=== PATIENT | male | born 1940 | race Caucasian/White ===

== ENCOUNTER 2022-07-29 16:50 | Inpatient (IN) | payer MEDICARE, OTHER ==
[~2022-07-29] VITALS: Ht 182.9 cm; Wt 82.5 kg
[~2022-07-29 16:50] MED LIST: ASPI81CH43; LISI-716
[2022-07-29 18:19] LABS: Eosinophils # (auto) 0.1 10 ^3/uL (0-0.8); Nucleated Red Blood Cells % 0.1 %; White Blood Cell 14.2 10^3/uL (4.4-10.8)
[2022-07-29 18:21] LABS: Basophils # (auto) 0.2 10 ^3/uL (0-0.2); Basophils % (auto) 1.1 % (0.0-2.0); Eosinophils % (auto) 0.5 % (0.0-7.0); Hematocrit 44.6 % (41.0-53.0); Hemoglobin 14.6 g/dL (13.5-17.5); Lymphocytes # (auto) 0.6 10 ^3/uL (0.4-5.4); Lymphocytes % (auto) 4.2 % (10.0-50.0); Mean Corpuscular Hemoglobin 30.8 pg (28.0-32.0); Mean Corpuscular Hgb Conc. 32.7 g/dL (32.0-36.0); Mean Corpuscular Volume 94.3 fL (80.0-100.0); Monocytes # (auto) 0.9 10 ^3/uL (0-1.3); Monocytes % (auto) 6.3 % (0.0-12.0); Neutrophils # (auto) 12.5 10 ^3/uL (1.6-8.6); Neutrophils % (auto) 87.9 % (37.0-80.0); Red Blood Cells 4.73 10^6/uL (4.5-5.90); Red Cell Distribution Width 15.3 % (11.8-14.3)
[2022-07-29 18:39] LABS: Alanine Aminotransferase 28 U/L (16-61); Albumin 2.8 g/dL (3.4-5.0); Anion Gap 9 (5-15); Aspartate Aminotransferase 50 U/L (15-37); BUN/Creatinine Ratio 21.3; Blood Urea Nitrogen 45 mg/dL (7-18); Calcium 8.5 mg/dL (8.5-10.1); Carbon Dioxide 22 mmol/L (21-32); Chloride 120 mmol/L (98-107); GFR African American 39 mL/min; GFR Non-African American 32 mL/min; Glucose 124 mg/dL (74-106); Magnesium 2.3 mg/dL (1.6-2.6); Potassium 4.6 mmol/L (3.5-5.1); Sodium 151 mmol/L (136-145)
[2022-07-29 18:42] LABS: Alkaline Phosphatase 65 U/L (45-117); Bilirubin, Total 1.8 mg/dL (0.2-1.0); Lactic Acid w/Reflex 3.2 mmol/L (0.4-2.0); Total Protein 6.4 g/dL (6.4-8.2)
[2022-07-29 18:43] LABS: Blood Alcohol < 3.0 mg/dL (0-5)
[2022-07-29 18:58] LABS: INR 1.07 (0.9-1.15); Partial Thromboplastin Time 30.8 sec (24.6-33.4)
[2022-07-29] MEDS ORDERED: PIPERACILLIN-TAZOB 3.375GM 100 ML IV ONE (19:45)
[2022-07-29] MEDS ORDERED: DOCUSATE SOD 100 MG CAP PO PRN (21:00)
[2022-07-29] MEDS ORDERED: MORPHINE SULFATE INJ 2 MG/ml SYRG IV PRN (21:00)
[2022-07-29] MEDS ORDERED: HYDROcodone-ACET 5/325MG TAB PO PRN (21:00)
[2022-07-29] MEDS ORDERED: HEPARIN DRIP/D5W 100UNITS/ML 250 ML IV SCH (21:00)
[2022-07-29] MEDS ORDERED: SOD CHL 0.45% 1,000 ML IV ONE (21:00)
[2022-07-29] MEDS ORDERED: NITROGLYCERIN 0.4 MG SL TAB SL PRN (21:00)
[2022-07-29] MEDS ORDERED: ACETAMINOPHEN 325 MG TAB PO PRN (21:00)
[2022-07-29] MEDS ORDERED: ONDANSETRON HCL 4 MG/2 ML VIAL IV PRN (21:00)
[2022-07-29 21:10] LABS: Basophils # (auto) 0.1 10 ^3/uL (0-0.2); Basophils % (auto) 0.5 % (0.0-2.0); Eosinophils # (auto) 0.1 10 ^3/uL (0-0.8); Eosinophils % (auto) 0.5 % (0.0-7.0); Lymphocytes # (auto) 0.5 10 ^3/uL (0.4-5.4); Nucleated Red Blood Cells % 0.1 %; White Blood Cell 13.8 10^3/uL (4.4-10.8)
[2022-07-29 21:12] LABS: Hematocrit 43.6 % (41.0-53.0); Hemoglobin 13.9 g/dL (13.5-17.5); Lymphocytes % (auto) 3.5 % (10.0-50.0); Mean Corpuscular Hemoglobin 30.5 pg (28.0-32.0); Mean Corpuscular Hgb Conc. 31.7 g/dL (32.0-36.0); Mean Corpuscular Volume 96.1 fL (80.0-100.0); Monocytes # (auto) 1.1 10 ^3/uL (0-1.3); Neutrophils # (auto) 12.1 10 ^3/uL (1.6-8.6); Neutrophils % (auto) 87.5 % (37.0-80.0); Red Blood Cells 4.54 10^6/uL (4.5-5.90); Red Cell Distribution Width 15.3 % (11.8-14.3)
[2022-07-29 21:32] LABS: Bilirubin, Direct 0.7 mg/dL (0-0.2)
[2022-07-29 21:34] LABS: Bilirubin, Total 1.6 mg/dL (0.2-1.0)
[2022-07-29 21:38] LABS: INR 1.11 (0.9-1.15); Partial Thromboplastin Time 31.3 sec (24.6-33.4)
[2022-07-29] MEDS: SODIUM CHLOR 0.9% PF (SALINE LOCK) 10ML VIAL/SYR IV SCH (22:00)
[2022-07-30] MEDS: SODIUM CHLOR 0.9% PF (SALINE LOCK) 10ML VIAL/SYR IV SCH ×3 (05:32→22:25)
[2022-07-30 09:27] LABS: Urine Bacteria NONE SEEN /hpf (None Seen); Urine Blood Negative /uL (Negative); Urine Specific Gravity 1.019 (1.001-1.035); Urine WBC 1 /hpf (0 - 3)
[2022-07-30 09:37] LABS: Alcohol, Urine < 3.0 mg/dL (0-10); Amphetamine Screen, Urine NEGATIVE (NEGATIVE); Barbiturate Scree,Urine NEGATIVE (NEGATIVE); Benzodiazephine Screen, Urine NEGATIVE (NEGATIVE); Cannabinoid Screen, Urine NEGATIVE (NEGATIVE); Cocaine Screen, Urine NEGATIVE (NEGATIVE); Opiate Scree,Urine NEGATIVE (NEGATIVE); Phencyclidine Screen, Urine NEGATIVE (NEGATIVE)
[2022-07-30 09:38] LABS: Creatinine, Urine 103 mg/dL (30.0-125.0); Sodium Urine 42 mmol/L (40-220)
[2022-07-30] MEDS ORDERED: AZITHROMYCIN 500MG/ 250ML 250 ML IV SCH (10:00)
[2022-07-30] MEDS ORDERED: cefTRIAXone 1GM/50ML D5W 50 ML IV SCH (10:00)
[2022-07-30 12:31] LABS: BUN/Creatinine Ratio 21.3; Calcium 8.6 mg/dL (8.5-10.1); Potassium 4.2 mmol/L (3.5-5.1)
[2022-07-30] MEDS ORDERED: VANCOMYCIN PER PHARMACY 0 MG IV SCH (16:00)
[2022-07-30] MEDS ORDERED: VANCOMYCIN 1GM/250ML 250 ML IV ONE (16:15)
[2022-07-30 22:36] VITALS: BP 109/67
[2022-07-30 23:45] VITALS: BP 109/67
[2022-07-31 05:00] VITALS: BP 123/65
[2022-07-31] MEDS: SODIUM CHLOR 0.9% PF (SALINE LOCK) 10ML VIAL/SYR IV SCH (05:33)
[2022-07-31 08:06] LABS: Albumin 2.5 g/dL (3.4-5.0); Calcium 8.2 mg/dL (8.5-10.1); Potassium 4.2 mmol/L (3.5-5.1)
[2022-07-31 08:10] LABS: BUN/Creatinine Ratio 21.2; Bilirubin, Direct 0.6 mg/dL (0-0.2); Bilirubin, Total 1.4 mg/dL (0.2-1.0); Phosphorus 3.2 mg/dL (2.5-4.90); Total Protein 5.7 g/dL (6.4-8.2); Uric Acid 9.8 mg/dL (3.5-7.2)
[2022-07-31 09:00] VITALS: BP 97/54
[2022-07-31 10:33] LABS: Basophils % (auto) 0.4 % (0.0-2.0); Eosinophils # (auto) 0 10 ^3/uL (0-0.8); Eosinophils % (auto) 0.4 % (0.0-7.0); Hemoglobin 12.3 g/dL (13.5-17.5); Lymphocytes # (auto) 0.4 10 ^3/uL (0.4-5.4); Lymphocytes % (auto) 3.4 % (10.0-50.0); Mean Corpuscular Hgb Conc. 32.2 g/dL (32.0-36.0); Monocytes # (auto) 0.9 10 ^3/uL (0-1.3); Monocytes % (auto) 7.7 % (0.0-12.0); Neutrophils % (auto) 88.1 % (37.0-80.0)
[2022-07-31 10:36] LABS: Basophils # (auto) 0 10 ^3/uL (0-0.2); Hematocrit 38.2 % (41.0-53.0); Mean Corpuscular Hemoglobin 30.5 pg (28.0-32.0); Mean Corpuscular Volume 94.9 fL (80.0-100.0); Neutrophils # (auto) 10.6 10 ^3/uL (1.6-8.6); Red Blood Cells 4.02 10^6/uL (4.5-5.90); Red Cell Distribution Width 15.4 % (11.8-14.3)
[2022-07-31] MEDS ORDERED: D5W 5% 1,000 ML IV SCH ×2 (11:00→12:45)
[2022-07-31] MEDS ORDERED: LACTATED RINGER'S 1,000 ML IV ONE (12:45)
[2022-07-31] MEDS ORDERED: DOXYCYCLINE 100MG/250ML 250 ML IV SCH (13:00)
[2022-07-31] MEDS ORDERED: VANCOMYCIN 1GM/250ML 250 ML IV ONE (13:30)
[2022-07-31 17:16] VITALS: BP 115/68
[2022-07-31 22:00] VITALS: BP 113/77
[2022-07-31] MEDS ORDERED: DOXYCYCLINE 100 MG TAB/CAP PO SCH (22:00)
[2022-08-01] MEDS: CEFEPIME 1GM/ 50ML 50 ML IV SCH ×3 (01:08→21:05)
[2022-08-01] MEDS: SODIUM CHLOR 0.9% PF (SALINE LOCK) 10ML VIAL/SYR IV SCH ×4 (01:08→21:06)
[2022-08-01] MEDS: D5W 5% 1,000 ML IV SCH ×2 (02:20→19:14)
[2022-08-01 05:00] VITALS: BP 97/67
[2022-08-01 07:51] LABS: Calcium 8.6 mg/dL (8.5-10.1); Potassium 3.9 mmol/L (3.5-5.1)
[2022-08-01 07:52] LABS: Basophils # (auto) 0.1 10 ^3/uL (0-0.2); Eosinophils # (auto) 0.1 10 ^3/uL (0-0.8); Hemoglobin 12.1 g/dL (13.5-17.5); Lymphocytes # (auto) 0.5 10 ^3/uL (0.4-5.4); Mean Corpuscular Volume 94.2 fL (80.0-100.0); Monocytes # (auto) 0.9 10 ^3/uL (0-1.3)
[2022-08-01 07:53] LABS: BUN/Creatinine Ratio 21.7
[2022-08-01 07:54] LABS: Basophils % (auto) 0.5 % (0.0-2.0); Eosinophils % (auto) 1.1 % (0.0-7.0); Hematocrit 36.2 % (41.0-53.0); Lymphocytes % (auto) 4.6 % (10.0-50.0); Mean Corpuscular Hemoglobin 31.5 pg (28.0-32.0); Mean Corpuscular Hgb Conc. 33.4 g/dL (32.0-36.0); Monocytes % (auto) 8.5 % (0.0-12.0); Neutrophils # (auto) 9.1 10 ^3/uL (1.6-8.6); Neutrophils % (auto) 85.3 % (37.0-80.0); Nucleated Red Blood Cells % 0.1 %; Red Blood Cells 3.84 10^6/uL (4.5-5.90); Red Cell Distribution Width 15.1 % (11.8-14.3); White Blood Cell 10.7 10^3/uL (4.4-10.8)
[2022-08-01 08:36] VITALS: BP 95/65
[2022-08-01 10:24] LABS: Thyroid Stimulating Hormone 2.19 uIU/mL (0.358-3.74)
[2022-08-01 13:06] VITALS: BP 120/73
[2022-08-01 16:43] LABS: Basophils # (auto) 0.1 10 ^3/uL (0-0.2); Eosinophils # (auto) 0.1 10 ^3/uL (0-0.8); Hemoglobin 12.9 g/dL (13.5-17.5); Lymphocytes # (auto) 0.5 10 ^3/uL (0.4-5.4); Mean Corpuscular Hemoglobin 31.5 pg (28.0-32.0); Monocytes # (auto) 0.9 10 ^3/uL (0-1.3)
[2022-08-01 16:46] LABS: Basophils % (auto) 0.5 % (0.0-2.0); Eosinophils % (auto) 1.3 % (0.0-7.0); Hematocrit 39.1 % (41.0-53.0); Lymphocytes % (auto) 4.6 % (10.0-50.0); Mean Corpuscular Hgb Conc. 32.9 g/dL (32.0-36.0); Mean Corpuscular Volume 95.7 fL (80.0-100.0); Monocytes % (auto) 8.1 % (0.0-12.0); Neutrophils # (auto) 9.1 10 ^3/uL (1.6-8.6); Neutrophils % (auto) 85.5 % (37.0-80.0); Nucleated Red Blood Cells % 0.1 %; Red Blood Cells 4.09 10^6/uL (4.5-5.90); Red Cell Distribution Width 15.5 % (11.8-14.3); White Blood Cell 10.6 10^3/uL (4.4-10.8)
[2022-08-01 16:57] VITALS: BP 96/75
[2022-08-01] MEDS: VANCOMYCIN 1GM/250ML 250 ML IV SCH (19:13)
[2022-08-01 22:00] VITALS: BP 101/72
[2022-08-02] VITALS (54 sets, daily range): BP systolic 74–113; BP diastolic 43–80
[2022-08-02] MEDS: D5W 5% 1,000 ML IV SCH ×2 (06:37→19:28)
[2022-08-02] MEDS: SODIUM CHLOR 0.9% PF (SALINE LOCK) 10ML VIAL/SYR IV SCH ×3 (06:37→22:25)
[2022-08-02 07:07] LABS: Immunoglobulin G, Serum 1133 mg/dL (603-1613)
[2022-08-02 08:12] LABS: Neutrophils # (auto) 8.7 10 ^3/uL (1.6-8.6)
[2022-08-02 08:15] LABS: Basophils # (auto) 0 10 ^3/uL (0-0.2); Basophils % (auto) 0.4 % (0.0-2.0); Eosinophils # (auto) 0.1 10 ^3/uL (0-0.8); Eosinophils % (auto) 1.3 % (0.0-7.0); Hematocrit 37.2 % (41.0-53.0); Lymphocytes # (auto) 0.5 10 ^3/uL (0.4-5.4); Lymphocytes % (auto) 5.1 % (10.0-50.0); Mean Corpuscular Hemoglobin 30.9 pg (28.0-32.0); Mean Corpuscular Hgb Conc. 32.3 g/dL (32.0-36.0); Mean Corpuscular Volume 95.7 fL (80.0-100.0); Monocytes # (auto) 0.7 10 ^3/uL (0-1.3); Monocytes % (auto) 6.7 % (0.0-12.0); Neutrophils % (auto) 86.5 % (37.0-80.0); Red Blood Cells 3.89 10^6/uL (4.5-5.90); Red Cell Distribution Width 15.2 % (11.8-14.3); White Blood Cell 10.1 10^3/uL (4.4-10.8)
[2022-08-02 08:26] LABS: Albumin 2.1 g/dL (3.4-5.0); Calcium 8.4 mg/dL (8.5-10.1); Potassium 4.2 mmol/L (3.5-5.1)
[2022-08-02 08:30] LABS: Bilirubin, Total 1.2 mg/dL (0.2-1.0)
[2022-08-02] MEDS ORDERED: ETOMIDATE (2MG/ML) 20ML VIAL IV ONE (09:43)
[2022-08-02] MEDS ORDERED: ROCURONIUM 10MG/ML 10ML VIAL IV ONE (09:43)
[2022-08-02] MEDS ORDERED: MIDAZOLAM DRIP 50 mg/50mL 50 ML IV ONE (09:58)
[2022-08-02] MEDS ORDERED: NOREPINEPHRINE 8 MG/250ML KIT 250 ML IV ONE (09:58)
[2022-08-02] MEDS ORDERED: Nepro With Carb Steady 1 Liter Bottle GT SCH (10:00)
[2022-08-02] MEDS: FREE WATER GT SCH ×3 (12:00→23:40)
[2022-08-02] MEDS ORDERED: AMIODARONE 450mg/250ml AE 250 ML IV SCH (12:15)
[2022-08-02] MEDS ORDERED: AMIODARONE HCL (50 MG/ ML) 3 ML VIAL IV ONE (12:37)
[2022-08-02] MEDS: NOREPINEPHRINE 8 MG/250ML KIT 250 ML IV SCH ×2 (12:46→20:06)
[2022-08-02] MEDS: AMIODARONE HCL 150 MG in D5W 5% 100 ML IV ONE ×2 (12:46→12:56)
[2022-08-02] MEDS: PHENYLEPHRINE IV 250 ML IV SCH ×2 (12:51→18:20)
[2022-08-02] MEDS: fentaNYL Drip 2500mCg/250mlNS 250 ML IV SCH (13:03)
[2022-08-02] MEDS ORDERED: methylPREDNISolone SOD SUCC 125 MG/2 ML VL IV SCH (14:00)
[2022-08-02] MEDS: MIDAZOLAM DRIP 50 mg/50mL 50 ML IV SCH ×3 (14:06→21:17)
[2022-08-02] MEDS: VANCOMYCIN 1GM/250ML 250 ML IV SCH (14:10)
[2022-08-02] MEDS: CEFEPIME 1GM/ 50ML 50 ML IV SCH ×2 (15:28→23:03)
[2022-08-02] MEDS: methylPREDNISolone SOD SUCC 125 MG/2 ML VL IV SCH ×2 (15:33→22:25)
[2022-08-02] MEDS ORDERED: EPINEPHrine HCL 1 MG/10 ML SYRG IV ONE (16:31)
[2022-08-02] MEDS ORDERED: DOPamine 1600mCg/ml 400MG/250ml NSorD5 KIT/BAG IV ONE (16:31)
[2022-08-02] MEDS: AMIODARONE 450mg/250ml AE 250 ML IV SCH ×2 (18:15→20:05)
[2022-08-02] MEDS ORDERED: FUROSEMIDE 40 MG/4 ML VIAL IV ONE (18:30)
[2022-08-03] VITALS (91 sets, daily range): BP systolic 85–138; BP diastolic 6–92
[2022-08-03] MEDS: MIDAZOLAM DRIP 50 mg/50mL 50 ML IV SCH ×2 (00:46→18:54)
[2022-08-03] MEDS: PHENYLEPHRINE IV 250 ML IV SCH ×3 (02:40→19:20)
[2022-08-03] MEDS ORDERED: VASOPRESSIN 20 UNIT/ML ONE (03:33)
[2022-08-03 04:46] LABS: Basophils # (auto) 0 10 ^3/uL (0-0.2); Eosinophils # (auto) 0 10 ^3/uL (0-0.8); Eosinophils % (auto) 0.1 % (0.0-7.0); Monocytes % (auto) 3.2 % (0.0-12.0); Red Cell Distribution Width 15.6 % (11.8-14.3)
[2022-08-03 04:48] LABS: Hematocrit 36.8 % (41.0-53.0); Hemoglobin 11.8 g/dL (13.5-17.5); Lymphocytes # (auto) 0.3 10 ^3/uL (0.4-5.4); Lymphocytes % (auto) 2.2 % (10.0-50.0); Mean Corpuscular Hgb Conc. 32.2 g/dL (32.0-36.0); Mean Corpuscular Volume 96.3 fL (80.0-100.0); Monocytes # (auto) 0.5 10 ^3/uL (0-1.3); Neutrophils # (auto) 13.3 10 ^3/uL (1.6-8.6); Neutrophils % (auto) 94.5 % (37.0-80.0); Nucleated Red Blood Cells % 0.9 %; Red Blood Cells 3.82 10^6/uL (4.5-5.90)
[2022-08-03] MEDS: FREE WATER GT SCH ×4 (06:00→23:50)
[2022-08-03] MEDS: SODIUM CHLOR 0.9% PF (SALINE LOCK) 10ML VIAL/SYR IV SCH ×3 (06:00→22:23)
[2022-08-03 06:26] LABS: BUN/Creatinine Ratio 5.2; Calcium 8.3 mg/dL (8.5-10.1)
[2022-08-03 06:45] LABS: Bilirubin, Total 2.4 mg/dL (0.2-1.0); Total Protein 6.2 g/dL (6.4-8.2)
[2022-08-03 06:58] LABS: Potassium 5.8 mmol/L (3.5-5.1)
[2022-08-03] MEDS: methylPREDNISolone SOD SUCC 125 MG/2 ML VL IV SCH ×3 (07:16→22:40)
[2022-08-03] MEDS: D5W 5% 1,000 ML IV SCH (07:40)
[2022-08-03] MEDS ORDERED: DEXTROSE (50%) 50ML SYRG IV ONE (10:00)
[2022-08-03] MEDS ORDERED: DEXTROSE (50%) 50ML SYRG IV PRN (10:00)
[2022-08-03] MEDS ORDERED: SODIUM ZIRCONIUM CYCL 10 GM PAK PO ONE (10:00)
[2022-08-03] MEDS ORDERED: SODIUM BICARBONATE 8.4 % INJ 50ML VIAL IV ONE ×2 (10:00→11:15)
[2022-08-03] MEDS ORDERED: FUROSEMIDE 40 MG/4 ML VIAL IV SCH (10:00)
[2022-08-03] MEDS ORDERED: InsuLIN REG 1unit/0.01ml Soln (100units/ml) IV ONE (10:00)
[2022-08-03] MEDS ORDERED: SODIUM BICARBONATE 50ML VIAL 100 ML in D5W 5% 1,000 ML IV ONE (11:15)
[2022-08-03] MEDS: CEFEPIME 1GM/ 50ML 50 ML IV SCH ×2 (11:23→22:22)
[2022-08-03] MEDS: fentaNYL Drip 2500mCg/250mlNS 250 ML IV SCH (12:00)
[2022-08-03] MEDS: AMIODARONE 450mg/250ml AE 250 ML IV SCH (12:04)
[2022-08-03] MEDS: NOREPINEPHRINE 8 MG/250ML KIT 250 ML IV SCH (12:04)
[2022-08-03 13:59] LABS: Hepatitis A Ab IgM Negative
[2022-08-03 14:00] LABS: Hepatitis B Core IgM Negative; Hepatitis C Antibody Negative (Negative)
[2022-08-03] MEDS: BUMETANIDE INJECTION 25 MG in GIVE UN-DILUTED 0 ML IV SCH (14:15)
[2022-08-03] MEDS: ACCU-CHEK COMFORT CURVE STRIP VI SCH ×3 (14:36→23:39)
[2022-08-03] MEDS: InsuLIN REG 1unit/0.01ml Soln (100units/ml) SC SCH ×3 (14:36→23:48)
[2022-08-03] MEDS: SODIUM ZIRCONIUM CYCL 10 GM PAK PO SCH (22:40)
[2022-08-04] VITALS (91 sets, daily range): BP systolic 80–123; BP diastolic 50–78
[2022-08-04] MEDS: MIDAZOLAM DRIP 50 mg/50mL 50 ML IV SCH ×4 (01:22→23:24)
[2022-08-04] MEDS: AMIODARONE 450mg/250ml AE 250 ML IV SCH (01:34)
[2022-08-04] MEDS: PHENYLEPHRINE IV 250 ML IV SCH ×3 (03:40→21:01)
[2022-08-04 04:10] LABS: Eosinophils # (auto) 0 10 ^3/uL (0-0.8); Hemoglobin 12.3 g/dL (13.5-17.5); Lymphocytes # (auto) 0.4 10 ^3/uL (0.4-5.4)
[2022-08-04 04:14] LABS: Basophils # (auto) 0.4 10 ^3/uL (0-0.2); Basophils % (auto) 2.7 % (0.0-2.0); Hematocrit 38.1 % (41.0-53.0); Lymphocytes % (auto) 2.7 % (10.0-50.0); Mean Corpuscular Hemoglobin 30.9 pg (28.0-32.0); Mean Corpuscular Hgb Conc. 32.2 g/dL (32.0-36.0); Mean Corpuscular Volume 95.9 fL (80.0-100.0); Monocytes # (auto) 0.6 10 ^3/uL (0-1.3); Monocytes % (auto) 3.8 % (0.0-12.0); Neutrophils # (auto) 13.5 10 ^3/uL (1.6-8.6); Neutrophils % (auto) 90.8 % (37.0-80.0); Nucleated Red Blood Cells % 1.9 %; Red Blood Cells 3.97 10^6/uL (4.5-5.90); Red Cell Distribution Width 15.2 % (11.8-14.3); White Blood Cell 14.9 10^3/uL (4.4-10.8)
[2022-08-04 05:22] LABS: Calcium 7.1 mg/dL (8.5-10.1); Potassium 5.4 mmol/L (3.5-5.1)
[2022-08-04 05:38] LABS: BUN/Creatinine Ratio 20.8; Bilirubin, Total 2.1 mg/dL (0.2-1.0); Total Protein 5.6 g/dL (6.4-8.2)
[2022-08-04] MEDS: SODIUM ZIRCONIUM CYCL 10 GM PAK PO SCH ×3 (05:43→22:10)
[2022-08-04] MEDS: SODIUM CHLOR 0.9% PF (SALINE LOCK) 10ML VIAL/SYR IV SCH ×3 (05:44→22:11)
[2022-08-04] MEDS: NOREPINEPHRINE 8 MG/250ML KIT 250 ML IV SCH ×2 (05:44→19:47)
[2022-08-04] MEDS: FREE WATER GT SCH ×3 (05:44→18:00)
[2022-08-04] MEDS: ACCU-CHEK COMFORT CURVE STRIP VI SCH ×3 (05:45→18:16)
[2022-08-04] MEDS: InsuLIN REG 1unit/0.01ml Soln (100units/ml) SC SCH ×3 (05:47→18:21)
[2022-08-04] MEDS ORDERED: methylPREDNISolone SOD SUCC 40 MG/ML VL ONE (05:59)
[2022-08-04] MEDS: methylPREDNISolone SOD SUCC 125 MG/2 ML VL IV SCH ×3 (06:00→22:10)
[2022-08-04] MEDS ORDERED: DOBUTamine 1000MCG/ML 250 ML IV SCH (09:15)
[2022-08-04] MEDS ORDERED: MEROPENEM 500MG IVPB 50 ML IV STA (10:54)
[2022-08-04] MEDS: BUMETANIDE INJECTION 25 MG in GIVE UN-DILUTED 0 ML IV SCH (11:38)
[2022-08-04] MEDS: fentaNYL Drip 2500mCg/250mlNS 250 ML IV SCH (12:00)
[2022-08-04] MEDS ORDERED: VASOPRESSIN 20 UNITS in SODIUM CHL 0.9% 99 ML IV SCH (21:30)
[2022-08-05] VITALS (14 sets, daily range): BP systolic 82–96; BP diastolic 47–70
[2022-08-05] MEDS: FREE WATER GT SCH
[2022-08-05] MEDS: ACCU-CHEK COMFORT CURVE STRIP VI SCH (00:17)
[2022-08-05] MEDS: InsuLIN REG 1unit/0.01ml Soln (100units/ml) SC SCH (00:21)
[2022-08-05] MEDS: NOREPINEPHRINE 8 MG/250ML KIT 250 ML IV SCH (00:25)
[2022-08-05] MEDS ORDERED: SODIUM BICARBONATE 8.4% INJ 50ML SYRINGE IV ONE (03:40)
[2022-08-05] MEDS ORDERED: EPINEPHrine HCL 1 MG/10 ML SYRG IV ONE (03:40)
[2022-08-05] MEDS ORDERED: CALCIUM CHLOR(10%) 100MG/ML 10ML SYRINGE IV ONE (03:40)
== END 2022-08-05 03:41 | DRG 871 ==
LOC: ER 16:50 → EDBD 16:50 → TELE 21:03 → TELE-WESTW 07-30 22:20 → ICU WEST 08-02 11:36
PROVIDERS: ADMIT Internal Medicine; ATTEND Nurse Practitioner Acute Care
PROC: 5A1945Z Respiratory Ventilation, 24-96 Consecutive Hours (ICD-10-PCS; principal; 2022-08-02)
PROC: 0BH17EZ Insertion of Endotracheal Airway into Trachea, Via Natural or Artificial Opening (ICD-10-PCS; 2022-08-02)
PROC: 05HN33Z Insertion of Infusion Device into Left Internal Jugular Vein, Percutaneous Approach (ICD-10-PCS; 2022-08-02)
PROC: B544ZZA Ultrasonography of Left Jugular Veins, Guidance (ICD-10-PCS; 2022-08-02)
PROC: 30233R1 Transfusion of Nonautologous Platelets into Peripheral Vein, Percutaneous Approach (ICD-10-PCS; 2022-08-02)
PROC: 5A12012 Performance of Cardiac Output, Single, Manual (ICD-10-PCS; 2022-08-05)
DX: A41.2 Sepsis due to unspecified staphylococcus (principal); G93.41 Metabolic encephalopathy; I21.A1 Myocardial infarction type 2; J18.9 Pneumonia, unspecified organism; I50.23 Acute on chronic systolic (congestive) heart failure; K72.00 Acute and subacute hepatic failure without coma; R65.21 Severe sepsis with septic shock; J96.01 Acute respiratory failure with hypoxia; E87.0 Hyperosmolality and hypernatremia; E87.1 Hypo-osmolality and hyponatremia; N17.9 Acute kidney failure, unspecified; I13.0 Hypertensive heart and chronic kidney disease with heart failure and stage 1 through stage 4 chronic kidney disease, or unspecified chronic kidney disease; D73.1 Hypersplenism; N18.32 Chronic kidney disease, stage 3b; E87.5 Hyperkalemia; I46.9 Cardiac arrest, cause unspecified; I48.91 Unspecified atrial fibrillation; D69.6 Thrombocytopenia, unspecified; R79.89 Other specified abnormal findings of blood chemistry; T14.8XXA Other injury of unspecified body region, initial encounter; X58.XXXA Exposure to other specified factors, initial encounter; Y93.89 Activity, other specified; Z85.46 Personal history of malignant neoplasm of prostate; Z95.2 Presence of prosthetic heart valve; Y92.89 Other specified places as the place of occurrence of the external cause; Y99.8 Other external cause status
CPT/HCPCS: 36415; 36600; 70450; 71045; 74176; 76700; 80048; 80053; 80074; 80076; 80202; 80307; 80320; 81001; 82247; 82248; 82550; 82570; 82607; 82784; 82805; 82962; 83605; 83615; 83735; 83880; 83930; 83935; 84100; 84132; 84154; 84300; 84443; 84484; 84550; 85025; 85379; 85610; 85730; 86038; 86160; 86200; 86334; 86431; 86703; 86850; 86880; 86900; 86901; 87040; 87070; 87077; 87081; 87186; 87205; 87426; 87804; 92950; 93005; 93306; 93970; 94002; 94003; 96365; 96366; 96367; G0378; J0696; J1815; J2185; J2250; J2543; J7060